=== PATIENT | female | born 1995 | race Caucasian/White ===

== ENCOUNTER 2023-12-25 18:56 | Emergency (ER) | payer SELFPAY ==
[~2023-12-25] VITALS: Ht 162.6 cm; Wt 93.0 kg
[2023-12-25 19:05] VITALS: O2SAT 99
[2023-12-25 19:14] VITALS: BP 175/93; PULSE 93; RESP 16; TEMP 98.6; O2SAT 98
== END 2023-12-25 20:04 | disposition home or self-care (01) ==
LOC: ER 18:56
DX: S01.81XD Laceration without foreign body of other part of head, subsequent encounter (principal); X58.XXXD Exposure to other specified factors, subsequent encounter
CPT/HCPCS: 99281; Z7610

== ENCOUNTER 2024-08-27 23:44 | Emergency (ER) | payer SELFPAY ==
[~2024-08-27] VITALS: Ht 162.6 cm; Wt 92.0 kg
[2024-08-27 23:51] VITALS: O2SAT 100
[2024-08-28] MEDS ORDERED: KETOROLAC 30MG/ML VIAL IM ONE (02:15)
[2024-08-28] MEDS ORDERED: IBUP-2029 MT (04:22)
[2024-08-28] MEDS: KETOROLAC 30MG/ML VIAL IM NR (05:07)
[2024-08-28 05:12] VITALS: BP 137/78; PULSE 98; RESP 20; TEMP 36.9; O2SAT 98
== END 2024-08-28 05:15 | disposition home or self-care (01) ==
LOC: ER 23:46
DX: S80.01XA Contusion of right knee, initial encounter (principal); X58.XXXA Exposure to other specified factors, initial encounter; Y93.89 Activity, other specified; Y92.89 Other specified places as the place of occurrence of the external cause; Y99.8 Other external cause status
CPT/HCPCS: 29505; 99284; 73562; 73590; 96372; J1885; Z7610